=== PATIENT | male | born 1990 | race Caucasian/White ===

== ENCOUNTER 2017-10-29 21:48 | Emergency (ER) | payer SELFPAY ==
[~2017-10-29] VITALS: Ht 190.5 cm; Wt 75.2 kg
[~2017-10-29 21:48] MED LIST: Z.0.NO CURRENT MEDS
[2017-10-29 21:54] VITALS: BP 126/78; PULSE 77; RESP 12; TEMP 97.3; O2SAT 99
--- NOTE | 2017-10-29 21:58 | PD ---
HPI Chief Complaint: dental pain, jaw pain Time Seen by Provider: 21:58 Travel History International Travel<30 days: No Contact w/Intl Traveler<30days: No Traveled to known affect area: No History of Present Illness HPI 27-year-old male came to the emergency room with history of left-sided lower jaw pain. This started this morning. Patient says it has slowly continued to spread to the entire left side of his face. He has also noticed some swelling. He does have dental issues. Patient looks anxious and in moderate distress. No history of chest pain. He is otherwise a healthy person. No aggravating or relieving factors. The pain is just there. PFSH Past Medical History Narrative Medical List of his past medical, surgical, social and family history as reviewed from the nursing note. Diminished Hearing: No Musculoskeletal: Yes (RECENT FACIAL FRACTURE) Social History Alcohol Use: Yes (QOD) Tobacco Use: Yes (1/4 PACK DAY) Substance Use: No Allergies-Medications (Allergen,Severity, Reaction): Coded Allergies: No Known Allergies (Verified Adverse Reaction, Unknown, 10/29/17) Comments No known drug allergies. Reported Meds & Prescriptions Reported Meds & Active Scripts Active Ibuprofen 600 Mg Tab 600 Mg PO Q6H PRN Amoxicillin 500 Mg Cap 500 Mg PO BID 10 Days Narrative Medication List of his home medications reviewed from the nursing note. Review of Systems Except as stated in HPI: all other systems reviewed are Neg HENT: Positive: Dental Difficulties Physical Exam Narrative GENERAL: Awake, alert, anxious, moderate distress SKIN: Focused skin assessment warm/dry. HEAD: Atraumatic. Normocephalic. EYES: Pupils equal and round. No scleral icterus. No injection or drainage. ENT: No nasal bleeding or discharge. Mucous membranes pink and moist. #19 tooth caries with surrounding gingivitis and tenderness. No fluctuance NECK: Trachea midline. No JVD. CARDIOVASCULAR: Regular rate and rhythm. No murmur appreciated. RESPIRATORY: No accessory muscle use. Clear to auscultation. Breath sounds equal bilaterally. GASTROINTESTINAL: Abdomen soft, non-tender, nondistended. Hepatic and splenic margins not palpable. MUSCULOSKELETAL: No obvious deformities. No clubbing. No cyanosis. No edema. NEUROLOGICAL: Awake and alert. No obvious cranial nerve deficits. Motor grossly within normal limits. Normal speech. PSYCHIATRIC: Appropriate mood and affect; insight and judgment normal. Data Data Last Documented VS Orders Orders Acetamin-Hydrocod 325-5 Mg ([place] 5-325 (10/29/17 22:00) Ibuprofen (Motrin) (10/29/17 22:00) Amoxicillin (Trimox) (10/29/17 22:00) Electrocardiogram (10/29/17 ) Ed Discharge Order (10/29/17 22:28) [facility] Medical Decision Making Medical Screen Exam Complete: Yes Emergency Medical Condition: Yes Medical Record Reviewed: Yes Interpretation(s) Twelve-lead EKG was reviewed by me. Normal sinus rhythm, normal axis, nonspecific ST-T wave changes. Heart rate of 66 bpm. Differential Diagnosis Gingivitis, dental pain Narrative Course 10:26 PM patient was given pain medication and antibiotic in the emergency room. I'll discharge him home with prescriptions. He has been given a pamphlet for the local dentist who could accept patients with no insurance. Procedures EKG Prior to Arrival: No Diagnosis Primary Impression: Pain, dental Additional Instructions: Please follow-up with a dentist. Take the medication as per the prescription direction. Med/Other Pt SpecificInfo: Prescription(s) given Scripts Ibuprofen (Ibuprofen) 600 Mg Tab 600 MG PO Q6H Y for Pain/Inflammation, #40 TAB 0 Refills Prov: An Jones MD 10/29/17 Amoxicillin (Amoxicillin) 500 Mg Cap 500 MG PO BID for Infection for 10 Days, #20 CAP 0 Refills Prov: An Jones MD 10/29/17 Disposition: 01 DISCHARGE HOME Condition: Stable An Jones MD Oct 29, 2017 21:58
[2017-10-29] MEDS ORDERED: AMOXICILLIN (TRIHYDRATE) 500 MG CAP PO ONE (22:00)
[2017-10-29] MEDS ORDERED: ACETAMINOPHEN/HYDROcodone 325 MG/5 MG TAB PO ONE (22:00)
[2017-10-29] MEDS ORDERED: IBUPROFEN 600 MG TAB PO ONE (22:00)
[2017-10-29] MEDS ORDERED: AMOX500C PO (22:28)
[2017-10-29] MEDS ORDERED: IBUP-232 PO (22:28)
--- NOTE | 2017-10-30 18:25 | EKG ---
Date Performed: 10/29/2017 Time Performed: 22:22:13 PTAGE: 27 years EKG: Sinus rhythm NORMAL ECG NO PREVIOUS TRACING DOCTOR: Kylah Lopez Interpretating Date/Time 10/30/2017 18:20:29
== END 2017-10-29 22:34 | disposition home or self-care (01) ==
LOC: PHEFT 21:48
DX: K08.89 Other specified disorders of teeth and supporting structures (principal); R68.84 Jaw pain; F17.200 Nicotine dependence, unspecified, uncomplicated
CPT/HCPCS: 93005; 99283